=== PATIENT | female | born 1980 | race Caucasian/White ===

== ENCOUNTER 2017-08-19 12:20 | Outpatient (CLI) ==
[2015-03-02 18:46] VITALS: BMI 66.5
== END 2017-08-19 12:21 | disposition home or self-care (01) ==
LOC: RHC-LAB 12:20
PROVIDERS: ATTEND Emergency Medicine
DX: E66.9 Obesity, unspecified (principal); E03.9 Hypothyroidism, unspecified
CPT/HCPCS: 36415; 84443

== ENCOUNTER 2018-04-08 13:29 | Outpatient (CLI) ==
[2015-03-02 18:46] VITALS: BMI 66.5
== END 2018-04-08 13:30 | disposition home or self-care (01) ==
LOC: RHC-LAB 13:29
PROVIDERS: ATTEND Nurse Practitioner Family
DX: E03.9 Hypothyroidism, unspecified (principal); R79.89 Other specified abnormal findings of blood chemistry
CPT/HCPCS: 36415; 84443